=== PATIENT | male | born 1950 | race Caucasian/White ===

== ENCOUNTER → 2018-02-22 | Outpatient (REF) | payer BC ==
[2018-02-25 00:07] LABS: PLASMA COBALT None Detected ug/L (0.0-0.9)
[2018-02-25 00:07] LABS: CHROMIUM PLASMA 1.3 ug/L (0.1-2.1)
== END ==
LOC: M LAB REF 16:42
DX: M25.552 Pain in left hip (principal); M54.5 Low back pain; T84.038A Mechanical loosening of other internal prosthetic joint, initial encounter; Y82.8 Other medical devices associated with adverse incidents
CPT/HCPCS: 82495

== ENCOUNTER → 2020-07-04 | Outpatient (REF) | payer MEDICARE, OTHER ==
[2020-07-09 18:08] LABS: CHROMIUM, WB <1.0 ng/mL (<3.0); COBALT, WB <1.0 ng/mL (<3.0)
== END ==
LOC: M LAB REF 16:26
PROVIDERS: ATTEND Internal Medicine
DX: Z00.00 Encounter for general adult medical examination without abnormal findings (principal); Z47.1 Aftercare following joint replacement surgery; T84.038A Mechanical loosening of other internal prosthetic joint, initial encounter; Z96.649 Presence of unspecified artificial hip joint

== ENCOUNTER → 2021-06-24 | Outpatient (REF) | payer MEDICARE ==
[2021-06-24 17:11] LABS: BACTERIA, URINE AUTO NEGATIVE (NEGATIVE); MUCUS, URINE SMALL (NEGATIVE); RBC, URINE AUTO 3 /HPF (0-3); SQUAMOUS EPITHELIAL CELL UR AU 0 /HPF (0-6); WBC, URINE AUTO 72 /HPF (0-3)
== END ==
LOC: M LAB REF 16:36
PROVIDERS: ATTEND Physician Assistant Medical
DX: N39.0 Urinary tract infection, site not specified (principal)

== ENCOUNTER → 2022-07-05 | Outpatient (CLI) | payer MEDICARE | LOC: M RAD 13:57 | PROVIDERS: ATTEND Nurse Practitioner Adult Health | DX: R05.9 Cough, unspecified (principal) ==

== ENCOUNTER → 2022-09-08 | Outpatient (REF) | payer MEDICARE | LOC: M LAB REF 16:05 | PROVIDERS: ATTEND Internal Medicine | DX: I82.599 Chronic embolism and thrombosis of other specified deep vein of unspecified lower extremity (principal) ==

== ENCOUNTER → 2023-12-27 | Outpatient (REF) | payer MEDICARE | LOC: M LAB REF 09:19 | PROVIDERS: ATTEND Podiatrist Foot & Ankle Surgery | DX: L40.9 Psoriasis, unspecified (principal); L98.6 Other infiltrative disorders of the skin and subcutaneous tissue ==